=== PATIENT | female | born 1990 | race Asian ===

== ENCOUNTER 2021-08-07 08:23 | Outpatient (CLI) | payer OTHER ==
[2021-08-07 18:46] LABS: SARS-CoV-2 PCR by NAA Not Detected (NotDetected)
== END 2021-08-07 08:24 | disposition home or self-care (01) ==
LOC: CSHLAB 08:23
PROVIDERS: ATTEND Obstetrics & Gynecology
DX: Z20.822 Contact with and (suspected) exposure to COVID-19 (principal)
CPT/HCPCS: U0003; U0005

== ENCOUNTER 2021-08-08 06:03 | Inpatient (IN) | payer MEDICAID, OTHER, SELFPAY ==
[2021-08-08] MEDS ORDERED: Lidocaine 1% (PF) 30 ML VIAL SC PRN (06:25)
[2021-08-08] MEDS ORDERED: Ibuprofen 800 MG TAB PO PRN (06:25)
[2021-08-08] MEDS ORDERED: hydrALAZINE 20 MG/ML VIAL SLOW IVP PRN ×2 (06:25→08:10)
[2021-08-08] MEDS ORDERED: Acetaminophen 500 MG TAB PO PRN (06:25)
[2021-08-08] MEDS ORDERED: Promethazine HCl 25 MG/ML VIAL IM PRN (06:25)
[2021-08-08] MEDS ORDERED: Ondansetron PF 4 MG/2 ML Vial IVP PRN (06:25)
[2021-08-08] MEDS ORDERED: Misoprostol 200 MCG TAB PR PRN (06:25)
[2021-08-08 06:27] VITALS: BMI 29.2
[2021-08-08] MEDS ORDERED: NS w/ Oxytocin 30 units 500 ML IV SCH (06:30)
[2021-08-08] MEDS ORDERED: Lactated Ringer's 1,000 ML IV SCH (06:30)
[2021-08-08] MEDS ORDERED: NS w/ Oxytocin 30 units 500 ML ONE (06:34)
[2021-08-08] MEDS ORDERED: Lidocaine 1% (PF) 30 ML VIAL ONE (06:34)
[2021-08-08 06:47] LABS: Hemoglobin 12.3 g/dL (12.0-15.5); Mean Corpuscular HGB CONC 32.6 g/dL (32.0-36.0); Mean Corpuscular Hemoglobin 28.9 pg (27.0-33.0); Mean Corpuscular Volume 88.5 fl (81.6-98.3); Mean Platelet Volume 10.3 fl (7.4-10.4); Platelet Count 201 10x3/uL (150-450); RBC Distribution Width 15.8 % (11.5-14.5); Red Blood Cell (RBC) Count 4.26 10x6/uL (3.90-5.03); White Blood Cell (WBC) Count 8.8 10x3/uL (3.5-10.5)
[2021-08-08 07:23] LABS: Hep B Surf Ag Non-Reactive S/CO (NonReactive)
[2021-08-08 07:24] LABS: Syphilis Antibody Nonreactive (Nonreactive); Syphilis Antibody Index 0.03 S/CO (<1.00 Non-Reactive)
[2021-08-08] MEDS ORDERED: traMADol HCl 50 MG TAB PO PRN (08:10)
[2021-08-08] MEDS ORDERED: Bisacodyl 10 MG SUPP PR PRN (08:10)
[2021-08-08] MEDS ORDERED: Benzocaine-Menthol 82.5 ML CAN TOP PRN (08:10)
[2021-08-08] MEDS ORDERED: Preparation H Ointment 28 GM TUBE PR PRN (08:10)
[2021-08-08] MEDS ORDERED: Boostrix 0.5 ML (Tdap) VIAL IM ONE (08:10)
[2021-08-08] MEDS ORDERED: Lanolin Ointment 7 GM TUBE TOP PRN (08:10)
[2021-08-08] MEDS ORDERED: Milk Of Magnesia 30 ML UDCUP PO PRN (08:10)
[2021-08-08] MEDS: traMADol HCl 50 MG TAB PO PRN (08:27)
[2021-08-08 13:01] LABS: SARS-CoV-2 NAA Rapid Test Not Detected (NotDetected)
[2021-08-08] MEDS: Docusate 100 MG CAP PO SCH ×2 (14:21→21:17)
[2021-08-08] MEDS: Ibuprofen 800 MG TAB PO SCH ×2 (14:24→21:17)
[2021-08-08] MEDS ORDERED: Ferrous Sulfate 325 MG TAB PO SCH (17:00)
[2021-08-09] MEDS: Ibuprofen 800 MG TAB PO SCH (05:52)
[2021-08-09] MEDS: traMADol HCl 50 MG TAB PO PRN (10:53)
[2021-08-09 12:05] VITALS: BP 97/50; TEMP 97.8
== END 2021-08-09 13:15 | disposition home or self-care (01) | DRG 807 ==
LOC: CSHLD/OP 06:03 → CSHLD 06:28 → CSHPP 13:30
PROVIDERS: ADMIT Obstetrics & Gynecology; ATTEND Obstetrics & Gynecology
PROC: 10E0XZZ Delivery of Products of Conception, External Approach (ICD-10-PCS; principal; 2021-08-08)
DX: O70.1 Second degree perineal laceration during delivery (principal); Z37.0 Single live birth; Z3A.39 39 weeks gestation of pregnancy; Z20.822 Contact with and (suspected) exposure to COVID-19
CPT/HCPCS: 36415; 85027; 86780; 86850; 86900; 86901; 87340; 99285; J2590; U0002